=== PATIENT | female | born 1925 | race Caucasian/White ===

== ENCOUNTER → 2017-04-25 | Outpatient (CLI) | payer MEDICARE, OTHER ==
--- NOTE | 2017-04-25 12:39 | FL ---
Modified barium swallow. HISTORY: Dysphagia. Modified barium swallow was performed with the department of speech pathology. The patient was prese nted with various consistencies of barium. There is silent aspiration with nectar thick barium. No additional aspiration or penetration seen wit h the remaining barium mixtures. Full report is to follow from the department of speech pathology. Impression: silent aspiration with nectar thick barium.
== END ==
LOC: RADFLMAIN 11:14
PROVIDERS: ATTEND Family Medicine
DX: R13.10 Dysphagia, unspecified (principal)
CPT/HCPCS: 74230